=== PATIENT | female | born 1990 | race Caucasian/White ===

== ENCOUNTER 2016-10-15 17:51 | Emergency (ER) | payer MEDICAID ==
[~2016-10-15] VITALS: Ht 154.9 cm; Wt 74.8 kg
[~2016-10-15 17:51] MED LIST: DICLEGIS; FIORICET 325 MG1 TA1 PO; MOTRIN 600600 MG/TAB PO; PERCOCET 325 MG1 TA2 PO; PRENATAL VITAMI1 TA3 PO; PRIL40 PO
[2016-10-15 17:54] VITALS: TEMP 98.3
[2016-10-15] MEDS ORDERED: PHENERGAN 25 TA25 MG PO (17:59)
[2016-10-15] MEDS ORDERED: FIORICET 325 MG1 TA1 PO (18:00)
[2016-10-15 18:58] LABS: BASO % 0.3 % (0.0-2.0); EOS # 0.1 (0.0-0.7); EOS % 0.9 % (0-4.0); HEMOGLOBIN 12.2 g/dl (12.5-16.0); LYMPH # 2.5 (1.2-3.4); LYMPH % 27.4 % (20.0-51.0); MEAN CELL VOLUME 88 fl (80.0-100.0); MEAN CORPUSCULAR HEMOGLOBIN 31 pg (27.0-31.0); MEAN CORPUSCULAR HGB CONC 35 g/dl (33.0-37.0); MONO # 0.5 (0.1-0.6); MONO % 5.1 % (1.7-9.3); PLATELET COUNT 209 K/mm3 (130-400); RED BLOOD COUNT 3.97 M/mm3 (4.10-5.30); REDCELL DISTRIBUTION WIDTH-CV 12.3 % (11.5-14.5)
[2016-10-15 19:01] LABS: HEMATOCRIT 35.1 % (37.0-47.0)
[2016-10-15 19:15] LABS: PH 8 (5-8); URINE APPEARANCE Cloudy; URINE BACTERIA Rare /hpf; URINE BILIRUBIN Negative (NEGATIVE); URINE BLOOD Negative (NEGATIVE); URINE COLOR Yellow; URINE GLUCOSE Negative (NEGATIVE); URINE KETONE Negative (NEGATIVE); URINE RBC 0-2 /hpf; URINE UROBILINOGEN Negative (NEGATIVE)
[2016-10-15 19:42] VITALS: BP 106/65; PULSE 85
[2016-10-15 19:47] LABS: CREATININE, serum 0.48 mg/dL (0.52-1.25); POTASSIUM 3.3 mmol/L (3.4-5.0)
== END 2016-10-15 19:42 | disposition home or self-care (01) ==
LOC: COL.ER 17:51
PROVIDERS: Emergency Medicine
DX: O21.0 Mild hyperemesis gravidarum (principal); Z3A.15 15 weeks gestation of pregnancy
CPT/HCPCS: J2405; J2550; J7030

== ENCOUNTER 2016-10-27 11:55 | Emergency (ER) | payer MEDICAID ==
[~2016-10-27] VITALS: Ht 154.9 cm; Wt 73.8 kg
[~2016-10-27 11:55] MED LIST changes: +PHENERGAN 25 TA25 MG PO
[2016-10-27 12:03] VITALS: BP 104/66; TEMP 98.4
[2016-10-27] MEDS ORDERED: UNISOM SLEEPGEL50 MG PO (12:06)
[2016-10-27] MEDS ORDERED: ZOFRAN 4MG T4 MG/TAB PO (12:07)
[2016-10-27] MEDS ORDERED: VITAMIN B650 MG PO (12:07)
[2016-10-27 13:15] LABS: BASO % 0.5 % (0.0-2.0); EOS # 0.1 (0.0-0.7); GRAN # 5.5 (1.4-6.5); GRAN % 65.3 % (42.2-75.2); LYMPH # 2.3 (1.2-3.4); LYMPH % 27.5 % (20.0-51.0); MEAN CELL VOLUME 89 fl (80.0-100.0); MEAN CORPUSCULAR HEMOGLOBIN 31 pg (27.0-31.0); MEAN CORPUSCULAR HGB CONC 35 g/dl (33.0-37.0); MEAN PLATELET VOLUME 8.7 fl (7.4-10.4); MONO # 0.4 (0.1-0.6); MONO % 5.3 % (1.7-9.3); PLATELET COUNT 243 K/mm3 (130-400); RED BLOOD COUNT 3.87 M/mm3 (4.10-5.30); WHITE BLOOD COUNT 8.4 K/mm3 (4.8-10.8)
[2016-10-27 13:27] LABS: HEMATOCRIT 34.5 % (37.0-47.0)
[2016-10-27 13:35] LABS: ADJUSTED CALCIUM 9.3 mg/dL (8.4-10.2); ALBUMIN 3.5 gm/dL (3.5-5.0); BILIRUBIN,TOTAL 0.6 mg/dL (0.0-1.0); CALCIUM 8.9 mg/dL (8.4-10.2); CREATININE, serum 0.48 mg/dL (0.52-1.25); POTASSIUM 3.3 mmol/L (3.4-5.0); TOTAL PROTEIN 6.9 gm/dL (6.4-8.2)
[2016-10-27 14:34] VITALS: PULSE 77
== END 2016-10-27 14:34 | disposition home or self-care (01) ==
LOC: COL.ER 11:55
PROVIDERS: Physician Assistant
DX: O21.0 Mild hyperemesis gravidarum (principal); Z3A.17 17 weeks gestation of pregnancy
CPT/HCPCS: J2405; J2550; J7030

== ENCOUNTER 2016-12-28 13:29 | Inpatient (IN) | payer MEDICAID ==
[~2016-12-28] VITALS: Ht 152.4 cm; Wt 79.1 kg
[~2016-12-28 13:29] MED LIST changes: +UNISOM SLEEPGEL50 MG PO; +VITAMIN B650 MG PO; +ZOFRAN 4MG T4 MG/TAB PO
[2016-12-28] MEDS ORDERED: NORCO 325 MG-51 TAB PO (14:09)
[2017-02-04] MEDS ORDERED: ZOLOFT 50MG50 MG PO (12:00)
[2017-02-04] MEDS ORDERED: PRILOSEC10 MG PO (12:01)
[2017-02-04] MEDS ORDERED: PRENATAL1 TA7 PO (12:01)
[2017-02-15] MEDS ORDERED: FIORICET 325 MG1 TA1 PO (13:23)
[2017-03-10] MEDS ORDERED: TYLENOL 500MG500 MG PO (22:59)
[2017-03-31] VITALS (26 sets, daily range): BP systolic 11–135; BP diastolic 51–92; PULSE 67–115; TEMP 97.5–98.5
[2017-03-31 07:32] LABS: BASO % 0.3 % (0.0-2.0); EOS # 0.1 (0.0-0.7); EOS % 0.8 % (0-4.0); GRAN # 6.3 (1.4-6.5); GRAN % 67.6 % (42.2-75.2); LYMPH # 2.3 (1.2-3.4); LYMPH % 25.3 % (20.0-51.0); MEAN CELL VOLUME 85 fl (80.0-100.0); MEAN CORPUSCULAR HGB CONC 33 g/dl (33.0-37.0); MEAN PLATELET VOLUME 9.4 fl (7.4-10.4); MONO # 0.5 (0.1-0.6); MONO % 5.5 % (1.7-9.3); PLATELET COUNT 190 K/mm3 (130-400); RED BLOOD COUNT 4.03 M/mm3 (4.10-5.30); WHITE BLOOD COUNT 9.3 K/mm3 (4.8-10.8)
[2017-03-31 07:33] LABS: HEMATOCRIT 34.1 % (37.0-47.0); HEMOGLOBIN 11.2 g/dl (12.5-16.0); MEAN CORPUSCULAR HEMOGLOBIN 28 pg (27.0-31.0)
[2017-04-01 07:00] VITALS: BP 120/82; PULSE 78; TEMP 97.3
[2017-04-01 07:56] LABS: HEMATOCRIT 31.2 % (37.0-47.0); HEMOGLOBIN 9.8 g/dl (12.5-16.0)
[2017-04-01 21:30] VITALS: BP 116/84; PULSE 80; TEMP 98.6
[2017-04-02 06:43] VITALS: BP 124/76; PULSE 68; TEMP 98
[2017-04-02] MEDS ORDERED: FERROUS SU325 MG/TAB PO (08:39)
[2017-04-02] MEDS ORDERED: PERCOCET 325 MG1 TA2 PO (08:39)
[2017-04-02] MEDS ORDERED: IBU600 MG PO (08:39)
== END 2017-04-02 13:00 | disposition home or self-care (01) | DRG 775 ==
LOC: COL.ER 13:29 → LDR 03-31 06:46 → OB 03-31 13:40
PROVIDERS: Obstetrics & Gynecology
PROC: 10E0XZZ Delivery of Products of Conception, External Approach (ICD-10-PCS; principal; 2017-03-31)
DX: O99.02 Anemia complicating childbirth (principal); D62 Acute posthemorrhagic anemia; Z3A.39 39 weeks gestation of pregnancy; Z37.0 Single live birth
CPT/HCPCS: J2590; J7120

== ENCOUNTER 2016-12-28 13:34 | Outpatient (CLI) | payer MEDICAID ==
[~2016-12-28] VITALS: Ht 154.9 cm; Wt 76.8 kg
[2016-12-28 14:00] VITALS: BP 111/66; PULSE 88; TEMP 98.6
[2016-12-28] MEDS ORDERED: NORCO 325 MG-51 TAB PO (14:09)
[2016-12-28 14:15] VITALS: BP 111/68; PULSE 86
[2016-12-28 14:35] VITALS: BP 108/64; PULSE 89
== END 2016-12-28 14:47 | disposition home or self-care (01) ==
LOC: LDRO 13:34
DX: O99.89 Other specified diseases and conditions complicating pregnancy, childbirth and the puerperium (principal); M54.9 Dorsalgia, unspecified; Z3A.25 25 weeks gestation of pregnancy

== ENCOUNTER 2017-01-09 13:51 | Outpatient (CLI) | payer MEDICAID ==
[~2017-01-09] VITALS: Ht 154.9 cm; Wt 77.3 kg
[~2017-01-09 13:51] MED LIST changes: +NORCO 325 MG-51 TAB PO
[2017-01-09 14:03] VITALS: BP 92/60; PULSE 96; TEMP 97.5
[2017-01-09 14:30] VITALS: BP 105/63; PULSE 89
[2017-01-09 14:49] LABS: BASO % 0.2 % (0.0-2.0); EOS # 0.1 (0.0-0.7); EOS % 0.3 % (0-4.0); GRAN # 12.1 (1.4-6.5); GRAN % 83.9 % (42.2-75.2); HEMOGLOBIN 12.3 g/dl (12.5-16.0); LYMPH # 1.5 (1.2-3.4); LYMPH % 10.6 % (20.0-51.0); MEAN CELL VOLUME 90 fl (80.0-100.0); MEAN CORPUSCULAR HEMOGLOBIN 30 pg (27.0-31.0); MEAN CORPUSCULAR HGB CONC 34 g/dl (33.0-37.0); MEAN PLATELET VOLUME 8.9 fl (7.4-10.4); MONO # 0.7 (0.1-0.6); MONO % 4.6 % (1.7-9.3); PLATELET COUNT 219 K/mm3 (130-400); RED BLOOD COUNT 4.06 M/mm3 (4.10-5.30); REDCELL DISTRIBUTION WIDTH-CV 12.4 % (11.5-14.5); WHITE BLOOD COUNT 14.4 K/mm3 (4.8-10.8)
[2017-01-09 14:50] LABS: HEMATOCRIT 36.7 % (37.0-47.0)
[2017-01-09 14:53] LABS: PH 7 (5-8); SQUAMOUS EPITHELIAL 0-2 /hpf; URINE APPEARANCE Clear; URINE BACTERIA None Seen /hpf; URINE BILIRUBIN Negative (NEGATIVE); URINE BLOOD Negative (NEGATIVE); URINE COLOR Yellow; URINE GLUCOSE Negative (NEGATIVE); URINE KETONE 2+ (NEGATIVE); URINE RBC 0-2 /hpf; URINE UROBILINOGEN Negative (NEGATIVE); URINE WBC 0-2 /hpf
[2017-01-09 15:00] VITALS: BP 108/63; PULSE 93
[2017-01-09 15:06] LABS: ADJUSTED CALCIUM 8.8 mg/dL (8.4-10.2); ALBUMIN 3.5 gm/dL (3.5-5.0); BILIRUBIN,TOTAL 0.6 mg/dL (0.0-1.0); CALCIUM 8.4 mg/dL (8.4-10.2); CREATININE, serum 0.42 mg/dL (0.52-1.25); POTASSIUM 3.8 mmol/L (3.4-5.0); TOTAL PROTEIN 6.7 gm/dL (6.4-8.2)
[2017-01-09 15:30] VITALS: BP 98/58; PULSE 85
[2017-01-09 16:00] VITALS: BP 96/62; PULSE 100
[2017-01-09 16:25] VITALS: BP 98/62; PULSE 108
== END 2017-01-09 16:40 | disposition home or self-care (01) ==
LOC: LDRO 13:51
PROVIDERS: Obstetrics & Gynecology
DX: O36.8120 Decreased fetal movements, second trimester, not applicable or unspecified (principal); O60.02 Preterm labor without delivery, second trimester; Z3A.27 27 weeks gestation of pregnancy
CPT/HCPCS: J2405; J3105; J7120

== ENCOUNTER 2017-02-04 11:14 | Outpatient (CLI) | payer MEDICAID ==
[~2017-02-04] VITALS: Ht 152.4 cm; Wt 78.2 kg
[2017-02-04 11:53] VITALS: BP 122/61; PULSE 93; TEMP 98.1
[2017-02-04] MEDS ORDERED: ZOLOFT 50MG50 MG PO (12:00)
[2017-02-04] MEDS ORDERED: PRILOSEC10 MG PO (12:01)
[2017-02-04] MEDS ORDERED: PRENATAL1 TA7 PO (12:01)
== END 2017-02-04 12:50 | disposition home or self-care (01) ==
LOC: LDRO 11:14
DX: Z34.83 Encounter for supervision of other normal pregnancy, third trimester (principal); Z3A.31 31 weeks gestation of pregnancy

== ENCOUNTER → 2017-02-15 | Outpatient (CLI) | payer MEDICAID ==
[~2017-02-15] VITALS: Ht 154.9 cm; Wt 78.2 kg
[~2017-02-15] MED LIST changes: +FERROUS SU325 MG/TAB PO; +IBU600 MG PO; +PRENATAL1 TA7 PO; +PRILOSEC10 MG PO; +TYLENOL 500MG500 MG PO; +ZOLOFT 50MG50 MG PO
[2017-02-15 13:00] VITALS: BP 93/62; PULSE 108; TEMP 97.6
[2017-02-15 13:01] VITALS: BP 93/62; PULSE 108; TEMP 97.6
[2017-02-15 13:35] VITALS: BP 92/59; PULSE 100
== END ==
LOC: LDRO 12:31
DX: O60.03 Preterm labor without delivery, third trimester (principal); O99.89 Other specified diseases and conditions complicating pregnancy, childbirth and the puerperium; R07.9 Chest pain, unspecified; Z3A.32 32 weeks gestation of pregnancy

== ENCOUNTER 2017-03-04 18:17 | Outpatient (CLI) | payer MEDICAID ==
[~2017-03-04] VITALS: Ht 152.4 cm; Wt 176.0 kg
[~2017-03-04 18:17] MED LIST changes: -FERROUS SU325 MG/TAB PO; -IBU600 MG PO; -TYLENOL 500MG500 MG PO
[2017-03-04 18:49] VITALS: BP 120/77; PULSE 108; TEMP 98.4
[2017-03-04 19:00] VITALS: BP 105/57; PULSE 98
[2017-03-04 19:30] VITALS: BP 101/59; PULSE 97
== END 2017-03-04 20:05 | disposition home or self-care (01) ==
LOC: LDRO 18:17
DX: Z34.83 Encounter for supervision of other normal pregnancy, third trimester (principal); Z3A.35 35 weeks gestation of pregnancy

== ENCOUNTER 2017-03-10 22:07 | Outpatient (CLI) | payer MEDICAID ==
[~2017-03-10] VITALS: Ht 154.9 cm; Wt 79.1 kg
[2017-03-10 22:51] VITALS: BP 110/57; PULSE 88; TEMP 97.6
[2017-03-10] MEDS ORDERED: TYLENOL 500MG500 MG PO (22:59)
[2017-03-10 23:00] VITALS: BP 110/57; PULSE 88; TEMP 97.6
[2017-03-10 23:37] VITALS: BP 106/67; PULSE 81
== END 2017-03-10 23:51 | disposition home or self-care (01) ==
LOC: LDRO 22:07
DX: O62.9 Abnormality of forces of labor, unspecified (principal); Z3A.36 36 weeks gestation of pregnancy

== ENCOUNTER 2017-03-25 13:43 | Outpatient (CLI) | payer MEDICAID ==
[~2017-03-25] VITALS: Ht 152.4 cm; Wt 79.1 kg
[~2017-03-25 13:43] MED LIST changes: +TYLENOL 500MG500 MG PO
[2017-03-25 13:58] VITALS: BP 117/74; PULSE 93; TEMP 97.8
[2017-03-25 15:00] VITALS: BP 111/72; PULSE 102
== END 2017-03-25 16:30 | disposition home or self-care (01) ==
LOC: LDRO 13:43
DX: Z34.83 Encounter for supervision of other normal pregnancy, third trimester (principal); Z3A.38 38 weeks gestation of pregnancy

== ENCOUNTER 2017-03-27 23:28 | Outpatient (CLI) | payer MEDICAID ==
[~2017-03-27] VITALS: Ht 152.4 cm; Wt 79.1 kg
[2017-03-28 00:50] VITALS: BP 115/70; PULSE 73
== END 2017-03-28 01:00 | disposition home or self-care (01) ==
LOC: LDRO 23:28
DX: Z03.71 Encounter for suspected problem with amniotic cavity and membrane ruled out (principal); Z3A.38 38 weeks gestation of pregnancy